=== PATIENT | female | born 1975 | race Caucasian/White ===

== ENCOUNTER 2024-02-27 14:54 | Emergency (ER) | payer OTHER, SELFPAY ==
[2024-02-27 15:04] VITALS: BP 154/114
[2024-02-27 16:01] VITALS: BP 138/95
[2024-02-27 16:19] LABS: % Basophils 0.8 % (0-2); % Eosinophils 0.7 % (0-6); % Immature Granulocytes 0.9 % (0-0.5); % Lymphocytes 16.9 % (20.5-51.1); % Monocytes 6.5 % (1.7-9.3); % Neutrophils 74.2 % (42.2-75.2); Absolute Basophils 0.1 10^3/uL (0-0.2); Absolute Eosinophils 0.1 10^3/uL (0-0.7); Absolute Immature Granulocytes 0.1 10^3/uL (0-0.05); Absolute Monocytes 0.8 10^3/uL (0.1-0.6); Absolute Neutrophils 8.9 10^3/uL (1.4-6.5); Hematocrit 38.3 % (37.0-47.0); Mean Corp Hgb Conc. 33.9 g/dL (33.0-37.0); Mean Corpuscular Hgb 29.8 pg (27.0-31.0); Mean Corpuscular Volume 87.8 fL (81.0-99.0); Nucleated Red Blood Cells % 0 %; Platelet Count 359 10^3/uL (130-400); Red Blood Cell Count 4.36 10^6/uL (4.20-5.40); Red Cell Dist. Width 12.8 % (11.5-14.5)
--- NOTE | 2024-02-27 16:30 | ED.GENMED ---
History of Present Illness
General
Chief Complaint: Nose Bleed
Source: patient
Time Seen by Provider: 02/27/24 15:44
History of Present Illness
History of Present Illness:
48-year-old female presenting to the emergency department for evaluation of right nare epistaxis that has been intermittent since January. Patient states that at times she may have 1 or 2 nosebleeds per day. States she cannot think of why this
started that she notes she has not been ill recently. Denies any fevers or infectious symptoms. Patient saw her primary care provider for this about a week ago who prescribed the patient a topical gel and stated to use the gel for about 2 weeks
but that if bleeding persisted would recommend following up ophthalmology. Patient has no other concerns at this time. Denies any further bleeding/bruising, lightheadedness, fevers, abnormal weight loss or fatigue.
Past History
Past History
ED Past Medical History: None
ED Past Surgical History: and Other
Social History
Tobacco: Non-smoker
Alcohol: None
Drug: None
Personal: Single
Living: alone
Review of Systems
Review of Systems
All Other Systems: ROS reviewed and negative except as documented in HPI and ROS
Phy Exam
Physical Exam
Physical Exam:
GENERAL: Alert , in no apparent distress
EYE: conjunctiva clear
Head: Normocephalic atraumatic
NECK: Supple,
ENT: mmm. small scab right nare along the septum without bleeding, no septal hematoma
LUNGS: no acute respiratory distress
NEUROLOGICAL: Alert and oriented
SKIN: Warm and dry, skin intact.
MUSCULOSKELETAL: well perfused.
PSYCH: Normal and appropriate interaction.
Scores
Heart Failure Risk
Heart Failure Risk Score: Not Applicable
Heart Score for Chest Pain Patients
STEMI patient?: Not applicable
Withdrawal Assessment of Alcohol
Withdrawal Assessment Completed?: Not applicable
Course
Orders/Labs/Results
Orders:
Orders
02/27/24 16:08
Basic Metabolic Panel Urgent
Complete Blood Count/With Diff Urgent
Abnormal Lab Results
02/27/24
16:08
WBC 12.0 H 10^3/uL
(4.8-10.8)
Abs Immat Gran (auto) 0.1 H 10^3/uL
(0-0.05)
Absolute Neuts (auto) 8.9 H 10^3/uL
(1.4-6.5)
Absolute Monos (auto) 0.8 H 10^3/uL
(0.1-0.6)
Immature Gran % 0.9 H %
(0-0.5)
Lymphocytes % 16.9 L %
(20.5-51.1)
02/27/24 16:08
02/27/24 16:08
Vital Signs
Initial and Last Documented VS:
Initial Vital Signs
Temp Pulse Resp BP Pulse Ox
98.6 F 115 16 154/114 96
02/27/24 15:04 02/27/24 15:04 02/27/24 15:04 02/27/24 15:04 02/27/24 15:04
Last Documented Vital Signs
Temp Pulse Resp BP Pulse Ox
98.6 F 106 16 135/95 97
02/27/24 15:04 02/27/24 16:01 02/27/24 15:04 02/27/24 16:41 02/27/24 16:01
MDM/Problems Addressed
Differential Diagnosis Includes:
anemia, thrombocytopenia, nasal abrasion
MDM/Problems Addressed:
48-year-old female presenting to the emergency department for evaluation of intermittent right nare epistaxis. Currently no active bleeding. Exam does reveal a small scab within the right nare that is the likely culprit of patient's bleeding.
Discussed risk versus benefit of applying silver nitrate to the affected area and patient would like me to proceed with applying silver nitrate. Silver nitrate was applied. There was small oozing from the area which was controlled with nasal
clamp. Labs ordered to evaluate for any thrombocytopenia or anemia. Anticipate discharge home and outpatient follow-up with ENT.
*Pulse Oximetry
Patient hypoxic: no
*Critical Care Note
Total Time (30-74mins, 75-104mins- exclusive of procedures): Not Applicable
ED Attending Note
-
Portions of this chart may have been created with voice recognition software.� Occasional wrong word or��sound alike� substitutions may have occurred due to the inherent limitations of voice recognition software.
Discharge Plan
Departure
Patient Disposition: Home (Routine Discharge)
Date of Disposition: 02/27/24
Time of Disposition: 16:34
Patient with high blood pressure during this ER visit?: Yes
Discharge Problem:
Frequent epistaxis
Instructions: Nosebleeds (DC)
Referrals:
Savita Crowell MD [Family Provider] -
Todd Anderson MD [Active] - (ENT)
Interventions
Interventions:
*Risk Screen - Suicide Last Done: 02/27/24 15:04
*General Assessment Last Done: 02/27/24 15:04
*Neglect/Abuse Screening Last Done: 02/27/24 15:04
ED- Fall Risk Assessment Last Done: 02/27/24 16:53
*ED COVID-19 Vaccine History Last Done: 02/27/24 16:00
*Nursing Disposition Last Done: 02/27/24 16:53
ED-EENT Assessment Last Done: 02/27/24 16:09
Discharge Date and Time
Discharge Date/Time: 02/27/24 16:54
Print Language: MOHAWK
[2024-02-27 16:33] LABS: Blood Urea Nitrogen 11 mg/dl (7-17); Calcium 9.9 mg/dl (8.4-10.2); Carbon Dioxide 28 mmol/L (22-30); Chloride 101 mmol/L (98-107); Glucose 99 mg/dl (70-99); Potassium 3.7 mmol/L (3.5-5.1); Sodium 142 mmol/L (135-145); eGFR > 60.00
[2024-02-27 16:41] VITALS: BP 135/95
== END 2024-02-27 16:54 | disposition home or self-care (01) ==
LOC: EMR 14:54
PROVIDERS: Physician Assistant Medical; EMERGENCY PHYSICIAN Emergency Medicine; FAMILY PHYSICIAN Family Medicine
DX: R04.0 Epistaxis (principal); R03.0 Elevated blood-pressure reading, without diagnosis of hypertension; Z91.048 Other nonmedicinal substance allergy status
CPT/HCPCS: 99283; 30901; 80048; 85025

== ENCOUNTER 2024-10-29 21:13 | Emergency (ER) | payer OTHER, SELFPAY ==
[2024-10-29 21:17] VITALS: BP 153/109
[2024-10-29 21:46] LABS: % Eosinophils 1.3 % (0-6); % Immature Granulocytes 0.6 % (0-0.5); % Monocytes 7.6 % (1.7-9.3); % Neutrophils 67.5 % (42.2-75.2); Absolute Basophils 0.1 10^3/uL (0-0.2); Absolute Eosinophils 0.2 10^3/uL (0-0.7); Absolute Immature Granulocytes 0.1 10^3/uL (0-0.05); Absolute Lymphocytes 2.9 10^3/uL (1.2-3.4); Absolute Neutrophils 8.9 10^3/uL (1.4-6.5); Hematocrit 43.8 % (37.0-47.0); Hemoglobin 14.9 g/dL (12.0-16.0); Mean Corpuscular Hgb 29.4 pg (27.0-31.0); Mean Corpuscular Volume 86.4 fL (81.0-99.0); Mean Platelet Volume 9.2 fL (7.4-10.4); Nucleated Red Blood Cells % 0 %; Platelet Count 338 10^3/uL (130-400); Red Blood Cell Count 5.07 10^6/uL (4.20-5.40); Red Cell Dist. Width 12.7 % (11.5-14.5); White Blood Cell Count 13.1 10^3/uL (4.8-10.8)
[2024-10-29 22:02] LABS: HCG, Serum Qualitative Screen Negative
[2024-10-29 22:04] LABS: Urine Albumin 2+ (Neg - Trace); Urine Bilirubin Negative (Negative); Urine Character Clear (Clear); Urine Color Yellow; Urine Glucose Negative (Negative); Urine Ketone Negative (Negative); Urine Leukocyte 1+ (Negative); Urine Nitrite Negative (Negative); Urine Occult Blood 4+ (Negative); Urine Urobilinogen Negative (Neg - 1+)
[2024-10-29 22:09] LABS: Urine Bacteria Moderate (Negative); Urine Red Blood Cell 50-60 /HPF (0-2); Urine Squamous Cell >30 /LPF (Few)
[2024-10-29 22:12] LABS: ALT (SGPT) 17 U/L (0-35); AST (SGOT) 19 U/L (14-36); Albumin 4.5 g/dl (3.5-5.0); Alkaline Phosphatase 77 U/L (38-126); Blood Urea Nitrogen 12 mg/dl (7-17); Carbon Dioxide 29 mmol/L (22-30); Chloride 105 mmol/L (98-107); Glucose 100 mg/dl (70-99); Potassium 4.4 mmol/L (3.5-5.1); Sodium 143 mmol/L (135-145); Total Bilirubin 0.6 mg/dl (0.2-1.3); eGFR > 60.00
--- NOTE | 2024-10-30 00:07 | ED.GENMED ---
History of Present Illness
<Kylee Weinstein PA-C - Last Filed: 10/30/24 01:12>
General
Chief Complaint: Flank Pain
Source: patient
Exam Limitations: none
Time Seen by Provider: 10/29/24 23:58
History of Present Illness
History of Present Illness:
49yoF with a history of kidney stones presenting for evaluation of flank pain. Symptoms initially began 6 days ago. She reports intermittent pain in her left lower quadrant. Pain feels similar to her prior kidney stone 20+ years ago. Pain is
also radiating to the left flank more recently. Her pain resolved for a few days so she thought she was in the clear but pain recurred this evening after dinnertime. She took ibuprofen prior to arrival and pain is now improved. Her current pain
is rated as a 2/10 in severity. She is otherwise asymptomatic and denies any fevers, vomiting, difficulty urinating, dysuria, constipation, diarrhea. Previous abdominal surgeries include an abdominoplasty and section.
Past History
<Kylee Weinstein PA-C - Last Filed: 10/30/24 01:12>
Past History
ED Past Medical History: None
ED Past Surgical History: and Other
Social History
Tobacco: Non-smoker
Alcohol: None
Drug: None
Personal: Single
Living: alone
Phy Exam
<Kylee Weinstein PA-C - Last Filed: 10/30/24 01:12>
General Physical Exam
General Presentation: well appearing and no apparent distress
General Skin: warm and dry
General Habitus: normal
General Mental: alert
ENT Exam
ENT Exam: normocephalic
Cardiovascular Exam
Cardiovascular Exam: regular rate/rhythm
Pulmonary Exam
Pulmonary Exam: lungs clear, no respiratory distress, no rales, no crackles, no rhonchi and no wheezing
Gastrointestinal Exam
Gastrointestinal Exam: non tender, soft, non distended and no cva tenderness
Neurological Exam
Neurological Exam: alert
Julita Coma Scale
Eye Opening: Spontaneous
Verbal Response: Oriented
Motor Response: Obeys Commands
GCS Total Score: 15
Skin Exam
Skin Exam: normal color and warm/dry
Psychiatric Exam
Psychiatric Exam: normal mood/affect
<Baldemar Fernandes Jr., PA-C - Last Filed: 10/30/24 01:51>
[place] Coma Scale
GCS Total Score: 15
Course
<Kylee Weinstein PA-C - Last Filed: 10/30/24 01:12>
Orders/Labs/Results
Orders:
Orders
10/29/24 21:22
Test Result ONCE
10/29/24 21:28
Complete Blood Count/With Diff Urgent
Comprehensive Metabolic Panel Urgent
HCG, Serum Qualitative Screen Urgent
Urinalysis Reflex To Culture Urgent
Date Specimen was Collected: 10/29/24
Time Specimen was Collected: 21:22
Urine Microscopic Reflex Cult Urgent
Urine Culture Urgent
CONRADO Source: U
Specimen Description:
Date Specimen was Collected: 10/29/24
Time Specimen was Collected: 21:22
10/30/24 00:05
CT Abd/pel Without Iv Or Oral Urgent
Comment:
Reason For Exam: L flank, LLQ pain
0.9% Sodium Chloride 1000 ml [Nss] 1,000 ml IV BOLUS
10/30/24 00:20
Urinalysis Reflex To Culture Urgent
Date Specimen was Collected: 10/30/24
Time Specimen was Collected: 00:15
Urine Microscopic Reflex Cult Urgent
Urine Culture Urgent
CONRADO Source: U
Specimen Description:
Date Specimen was Collected: 10/30/24
Time Specimen was Collected: 00:15
10/30/24 01:12
Tamsulosin [Flomax] 0.4 mg PO NOW STA
Abnormal Lab Results
10/29/24 10/30/24
21:28 00:20
WBC 13.1 H 10^3/uL
(4.8-10.8)
Abs Immat Gran (auto) 0.1 H 10^3/uL
(0-0.05)
Absolute Neuts (auto) 8.9 H 10^3/uL
(1.4-6.5)
Absolute Monos (auto) 1.0 H 10^3/uL
(0.1-0.6)
Immature Gran % 0.6 H %
(0-0.5)
Glucose 100 H mg/dl
(70-99)
Ur Occult Blood Reflex 4+ A 3+ A
(Negative) (Negative)
Leukocyte Esterase Rfl 1+ A
(Negative)
Urine RBC 50-60 A /HPF 40-50 A /HPF
(0-2) (0-2)
Urine Bacteria (Reflex) Moderate A Moderate A
(Negative) (Negative)
Urine Albumin (Reflex) 2+ A 1+ A
(Neg - Trace) (Neg - Trace)
10/29/24 21:28
10/29/24 21:28
Vital Signs
Initial and Last Documented VS:
Initial Vital Signs
Temp Pulse Resp BP Pulse Ox
98.7 F 109 18 153/109 98
10/29/24 21:17 10/29/24 21:17 10/29/24 21:17 10/29/24 21:17 10/29/24 21:17
Last Documented Vital Signs
Temp Pulse Resp BP Pulse Ox
98.7 F 109 18 140/91 91
10/29/24 21:17 10/29/24 21:17 10/29/24 21:17 10/30/24 00:25 10/30/24 00:30
<Baldemar Fernandes Jr., PA-C - Last Filed: 10/30/24 01:51>
Orders/Labs/Results
Orders:
Orders
10/29/24 21:22
Test Result ONCE
10/29/24 21:28
Complete Blood Count/With Diff Urgent
Comprehensive Metabolic Panel Urgent
HCG, Serum Qualitative Screen Urgent
Urinalysis Reflex To Culture Urgent
Date Specimen was Collected: 10/29/24
Time Specimen was Collected: 21:22
Urine Microscopic Reflex Cult Urgent
Urine Culture Urgent
CONRADO Source: U
Specimen Description:
Date Specimen was Collected: 10/29/24
Time Specimen was Collected: 21:22
10/30/24 00:05
CT Abd/pel Without Iv Or Oral Urgent
Comment:
Reason For Exam: L flank, LLQ pain
0.9% Sodium Chloride 1000 ml [Nss] 1,000 ml IV BOLUS
10/30/24 00:20
Urinalysis Reflex To Culture Urgent
Date Specimen was Collected: 10/30/24
Time Specimen was Collected: 00:15
Urine Microscopic Reflex Cult Urgent
Urine Culture Urgent
CONRADO Source: U
Specimen Description:
Date Specimen was Collected: 10/30/24
Time Specimen was Collected: 00:15
10/30/24 01:12
Tamsulosin [Flomax] 0.4 mg PO NOW STA
Abnormal Lab Results
10/29/24 10/30/24
21: 00:20
WBC 13.1 H 10^3/uL
(4.8-10.8)
Abs Immat Gran (auto) 0.1 H 10^3/uL
(0-0.05)
Absolute Neuts (auto) 8.9 H 10^3/uL
(1.4-6.5)
Absolute Monos (auto) 1.0 H 10^3/uL
(0.1-0.6)
Immature Gran % 0.6 H %
(0-0.5)
Glucose 100 H mg/dl
(70-99)
Ur Occult Blood Reflex 4+ A 3+ A
(Negative) (Negative)
Leukocyte Esterase Rfl 1+ A
(Negative)
Urine RBC 50-60 A /HPF 40-50 A /HPF
(0-2) (0-2)
Urine Bacteria (Reflex) Moderate A Moderate A
(Negative) (Negative)
Urine Albumin (Reflex) 2+ A 1+ A
(Neg - Trace) (Neg - Trace)
10/29/24 21:28
10/29/24 21:28
Vital Signs
Initial and Last Documented VS:
Initial Vital Signs
Temp Pulse Resp BP Pulse Ox
98.7 F 109 18 153/109 98
10/29/24 21:17 10/29/24 21:17 10/29/24 21:17 10/29/24 21:17 10/29/24 21:17
Last Documented Vital Signs
Temp Pulse Resp BP Pulse Ox
98.7 F 109 18 140/91 91
10/29/24 21:17 10/29/24 21:17 10/29/24 21:17 10/30/24 00:25 10/30/24 00:30
Ethanlt;Kylee Weinstein PA-C - Last Filed: 10/30/24 01:12>
MDM/Problems Addressed
Differential Diagnosis Includes:
49yoF here with intermittent LLQ pain x 6 days that radiates to the L flank. Hx of kidney stones and this feels similar. No n/v. No fevers or urinary symptoms. She is well appearing in no distress. No abdominal or CVA tenderness on exam.
Differential diagnosis includes but is not limited to: kidney stone, UTI, pyelonephritis, diverticulitis, constipation, musculoskeletal
Initial ED plan: Workup initiated in triage. WBC 13.1 which is nonspecific. Renal function normal. UA with 4+ blood. Moderate bacteria on microscopic analysis although there are >30/LPF squamous epithelial cells suggesting contaminated sample. Will
repeat UA and check CT abdomen without contrast. IV fluid bolus.
<Baldemar Fernandes Jr., PA-C - Last Filed: 10/30/24 01:51>
*Critical Care Note
Total Time (30-74mins, 75-104mins- exclusive of procedures): Not Applicable
<Baldemar Fernandes Jr., PA-C - Last Filed: 10/30/24 01:51>
Update Note
Update Note:
CT scan showing left-sided 4 mm obstructing stone with mild hydro-. No evidence of complications patient in no distress here stable for outpatient management return precautions given.
ED Attending Note
<Kylee Weinstein PA-C - Last Filed: 10/30/24 01:12>
-
Portions of this chart may have been created with voice recognition software.� Occasional wrong word or��sound alike� substitutions may have occurred due to the inherent limitations of voice recognition software.
Discharge Plan
Departure
Patient Disposition: Home (Routine Discharge)
Date of Disposition: 10/30/24
Time of Disposition: 01:50
Patient with high blood pressure during this ER visit?: No
Condition: Good
Covid-19: Not Applicable
Discharge Problem:
Left ureteral stone
Instructions: Kidney Stones (DC), How to Strain Your Urine
Prescriptions:
New
oxycodone 5 mg tablet
5 mg PO Q6H PRN (Reason: Pain) Qty: 12 0RF
tamsulosin [Flomax] 0.4 mg capsule
0.4 mg PO HS Qty: 7 0RF
ondansetron 4 mg tablet,disintegrating
4 mg PO Q6H PRN (Reason: nausea and vomiting) Qty: 20 0RF
Referrals:
Justice Ho MD [Active, Urology]
Savita Crowell MD [Family Provider, Family Practice]
Activity Restrictions/Additional Instructions:
Drink plenty of fluids. Strain your urine and take Flomax until stone has passed.
Take Tylenol and ibuprofen for pain. Take oxycodone as needed for severe breakthrough pain. Take Zofran as needed for nausea.
Please call tomorrow to schedule a follow-up with urology. Return to the ER with any worsening symptoms including fevers or uncontrolled pain.
Interventions
Interventions:
*Risk Screen - Suicide Last Done: 10/29/24 21:20
*General Assessment Last Done: 10/30/24 00:30
*Neglect/Abuse Screening Last Done: 10/29/24 21:20
*ED- Fall Risk Assessment Last Done: 10/30/24 00:30
*ED COVID-19 Vaccine History Last Done: 10/30/24 00:30
HW-Grvhan-Mqmjucvifp Assessment Last Done: 10/30/24 00:30
ED-Female Genitourinary Assessment Last Done: 10/30/24 00:30
Discharge Date and Time
Print Language: NAMIBIAN
[2024-10-30] MEDS: NSS 1000 IV (00:22)
[2024-10-30 00:25] VITALS: BP 140/91
[2024-10-30 00:43] LABS: Urine Albumin 1+ (Neg - Trace); Urine Bilirubin Negative (Negative); Urine Character Clear (Clear); Urine Color Yellow; Urine Glucose Negative (Negative); Urine Ketone Negative (Negative); Urine Leukocyte Negative (Negative); Urine Nitrite Negative (Negative); Urine Occult Blood 3+ (Negative); Urine Urobilinogen Negative (Neg - 1+)
[2024-10-30 01:05] LABS: Urine Amorphous Seen; Urine Mucus Many; Urine Squamous Cell >30 /LPF (Few)
[2024-10-30 01:06] LABS: Urine Bacteria Moderate (Negative); Urine Red Blood Cell 40-50 /HPF (0-2)
[2024-10-30] MEDS: FLOMAX 0.4 MG PO (01:35)
[2024-10-30 01:36] VITALS: BP 145/93
== END 2024-10-30 02:12 | disposition home or self-care (01) ==
LOC: EMR 21:13
PROVIDERS: Physician Assistant; Student in an Organized Health Care Education/Training Program; EMERGENCY PHYSICIAN Emergency Medicine; FAMILY PHYSICIAN Family Medicine
DX: N13.2 Hydronephrosis with renal and ureteral calculous obstruction (principal)
CPT/HCPCS: 96360; 99284; 74176; 80053; 81003; 81015; 84703; 85025; 87086

== ENCOUNTER → 2024-12-04 11:42 | Outpatient (REF) | payer OTHER, SELFPAY | LOC: HWRAD 11:42 | PROVIDERS: ATTENDING PHYSICIAN Specialist; FAMILY PHYSICIAN Family Medicine | DX: N20.1 Calculus of ureter (principal) | CPT/HCPCS: 74176 ==